=== PATIENT | male | born 2000 | race Caucasian/White ===

== ENCOUNTER 2019-05-26 02:41 | Emergency (ER) | payer BC ==
--- NOTE | 2019-05-26 02:49 | ER Document Report ---
ED General Pain - General Mode of Arrival: Medic Information source: Patient, Emergency Med Personnel <ELENA ANDERSEN - Last Filed: 05/26/19 11:07> <ROSE MARY MENDENHALL - Last Filed: 05/26/19 11:39> <STEPHENZANE P - Last Filed: 05/26/19 11:47> - General Chief Complaint: Accidental Overdose Stated Complaint: ACCIDENTAL OVERDOSE Time Seen by Provider: 05/26/19 02:43 Notes: Patient is an otherwise healthy 18-year-old male presenting to the emergency department after overdosing on Benadryl. Patient reports he took a total of 20 tablets of 25 mg Benadryl. He states this occurred about an hour prior to arrival. Patient states he was trying to go to sleep and initially took 2 tablets of Benadryl but when this did not help him he took the rest of what he had on hand. He denies any suicidal or homicidal ideations. Denies intent of self-harm. Patient reports he used to take Benadryl which helped him go to sleep, when it did not work this time he thought maybe the Benadryl that he bought was "weak" so he decided to try to take more. He denies any recent depression. He is otherwise healthy he does not take any medications. (ELENA ANDERSEN) - Related Data Allergies/Adverse Reactions: No Known Allergies Allergy (Unverified 05/26/19 02:49) Past Medical History - General Information source: Patient - Social History Smoking Status: Never Smoker Frequency of alcohol use: None Drug Abuse: None Family History: Reviewed & Not Pertinent - Medical History Medical History: Negative Surgical Hx: Negative - Immunizations Immunizations up to date: Yes <ELENA ANDERSEN - Last Filed: 05/26/19 11:07> Review of Systems - Review of Systems Constitutional: No symptoms reported EENT: No symptoms reported Cardiovascular: No symptoms reported Respiratory: No symptoms reported Gastrointestinal: No symptoms reported Genitourinary: No symptoms reported Male Genitourinary: No symptoms reported Musculoskeletal: No symptoms reported Skin: No symptoms reported Hematologic/Lymphatic: No symptoms reported Neurological/Psychological: See HPI <ELENA ANDERSEN - Last Filed: 05/26/19 11:07> Physical Exam <ELENA ANDERSEN - Last Filed: 05/26/19 11:07> - Vital signs Vitals: Pulse Ox 100 05/26/19 02:44 - Notes Notes: PHYSICAL EXAMINATION: GENERAL: Well-appearing, well-nourished and in no acute distress. HEAD: Atraumatic, normocephalic. EYES: Pupils equal round and reactive to light, extraocular movements intact, sclera anicteric, conjunctiva are normal. ENT: Nares patent, oropharynx clear without exudates. Moist mucous membranes. NECK: Normal range of motion, supple without lymphadenopathy LUNGS: Breath sounds clear to auscultation bilaterally and equal. No wheezes rales or rhonchi. HEART: Regular rate and rhythm without murmurs ABDOMEN: Soft, nontender, nondistended abdomen. No guarding, no rebound. No masses appreciated. Musculoskeletal: Normal range of motion, no pitting or edema. No cyanosis. NEUROLOGICAL: Cranial nerves grossly intact. Normal speech, normal gait. Flor l sensory, motor exams PSYCH: Normal mood, normal affect. SKIN: Warm, Dry, normal turgor, no rashes or lesions noted. (ELENA ANDERSEN) Course - Laboratory Result Diagrams: 05/26/19 02:47 05/26/19 02:47 <ELENA ANDERSEN - Last Filed: 05/26/19 11:07> - Laboratory Result Diagrams: 05/26/19 02:47 05/26/19 02:47 <ZANE MITCHELL - Last Filed: 05/26/19 11:47> - Re-evaluation Re-evalutation: 05/26/19 03:00 Contacted poison control. Poison control recommends monitoring for tachycardia and seizure activity. Give benzodiazepines if necessary. Patient is alert, oriented, vital signs stable. Monitoring. Is minimum of 6 hours from time of ingestion which would put us at approximately 7:30 AM. 05/26/19 07:03 Patient is alert, oriented, completely asymptomatic. Heart rate 63, respiratory rate 13, SPO2 97% on room air. Blood pressure is 100/63. He is medically renuka ared at this time, currently on IVC papers pending psychiatric evaluation. (ELENA ANDERSEN) 05/26/19 11:46 Family member confirms this was an accidental overdose. Will discharge pt to family care. Seen by Behavioral Health who are in agreement with the plan. ( ZANE MITCHELL) - Vital Signs Vital signs: Temp Pulse Resp BP Pulse Ox 13 118/76 98 05/26/19 11:01 05/26/19 11:01 05/26/19 11:01 - Laboratory Laboratory results interpreted by me: 05/26/19 05/26/19 05/26/19 02:47 02:47 06:19 Lymph % (Auto) 47.5 H Seg Neutrophils % 41.8 L Potassium 3.3 L Salicylates < 1.0 L < 1.0 L Acetaminophen < 10 L < 10 L Discharge <NATHALYELENA C - Last Filed: 05/26/19 11:07> <ROSE MARY MENDENHALL - Last Filed: 05/26/19 11:39> <ZANE MITCHELL - Last Filed: 05/26/19 11:47> - Discharge Clinical Impression: Overdose Qualifiers: Encounter type: initial encounter Injury intent: undetermined intent Qualified Code(s): T50.904A - Poisoning by unspecified drugs, medicaments and biological substances, undetermined, initial encounter Condition: Stable Disposition: HOME, SELF-CARE Additional Instructions: You have been evaluated by both medical and behavioral health teams for accidental overdose and have been deemed appropriate for discharge. While in the emergency department you received the following services: Medical screening and assessment, nursing services, dietary services, pharmacological services, one-on-one counseling and/or psychotherapy, and environmental services. You are encouraged to follow up with your primary care provider with concerns for insomnia. Per the discussion with behavioral health, you have been provided with an outpatient mental health resource list in the event you want to follow up with a mental health provider for CB-I therapy to address insomnia. AT ANY TIME, IF YOUR SYMPTOMS CHANGE SIGNIFICANTLY OR WORSEN OR YOU DEVELOP NEW SYMPTOMS, RETURN TO THE EMERGENCY DEPARTMENT IMMEDIATELY FOR RE-EVALUATION.
[2019-05-26 03:12] LABS: ABSOLUTE EOSINOPHILS # (AUTO) 0.1 10^3/uL (0.0-0.6); ABSOLUTE LYMPHOCYTES (AUTO) 3.3 10^3/uL (0.5-4.7); ABSOLUTE MONOCYTES (AUTO) 0.6 10^3/uL (0.1-1.4); ABSOLUTE NEUT (AUTO) 2.9 10^3/uL (1.7-8.2); BASOPHILS % (AUTO) 0.4 % (0-2); EOSINOPHILS % (AUTO) 1.3 % (0-6); HEMATOCRIT 46.4 % (37.9-51.0); HEMOGLOBIN 16.2 g/dL (13.5-17.0); LYMPHOCYTES % (AUTO) 47.5 % (13-45); MEAN CORPUSCULAR HEMOGLOBIN 30.1 pg (27.0-33.4); MEAN CORPUSCULAR VOLUME 86 fl (80-97); PLATELET COUNT 267 10^3/uL (150-450); RED CELL DISTRIBUTION WIDTH 13.5 % (11.5-14.0); SEGMENTED NEUTROPHILS % (AUTO) 41.8 % (42-78); TOTAL CELLS COUNTED % (AUTO) 100 %; WHITE BLOOD COUNT 6.9 10^3/uL (4.0-10.5)
[2019-05-26 03:20] LABS: ALBUMIN 4.1 g/dL (3.7-5.6); ALKALINE PHOSPHATASE 88 U/L (65-260); ANION GAP 8 (5-19); ASPARTATE AMINO TRANSFERASE 22 U/L (10-45); BILIRUBIN,DIRECT 0.3 mg/dL (0.0-0.4); BILIRUBIN,TOTAL 0.3 mg/dL (0.2-1.3); BLOOD UREA NITROGEN 18 mg/dL (7-20); CALCIUM 8.6 mg/dL (8.4-10.2); CARBON DIOXIDE 26 mmol/L (22-30); CHLORIDE 105 mmol/L (98-107); GLUCOSE 84 mg/dL (75-110); POTASSIUM 3.3 mmol/L (3.6-5.0); TOTAL PROTEIN 7.1 g/dL (6.3-8.2)
[2019-05-26 03:22] LABS: ACETAMINOPHEN < 10 ug/mL (10-30); ALCOHOL < 10 mg/dL (NONE DETECTED); SALICYLATE < 1.0 mg/dL (2.0-20.0)
[2019-05-26 04:52] LABS: APPEARANCE,URINE CLEAR; BILIRUBIN,URINE NEGATIVE (NEGATIVE); COLOR,URINE STRAW; GLUCOSE, URINE NEGATIVE (NEGATIVE); KETONES,URINE NEGATIVE (NEGATIVE); LEUKOCYTE ESTERASE,URINE NEGATIVE (NEGATIVE); NITRITE,URINE NEGATIVE (NEGATIVE); PROTEIN,URINE NEGATIVE (NEGATIVE); UROBILINOGEN,URINE NEGATIVE mg/dL (<2.0)
[2019-05-26 05:08] LABS: URINE AMPHETAMINES SCREEN NEGATIVE; URINE BARBITURATES SCREEN NEGATIVE; URINE BENZODIAZEPINES SCREEN NEGATIVE; URINE COCAINE SCREEN NEGATIVE; URINE MARIJUANA (THC) SCREEN NEGATIVE; URINE METHADONE SCREEN NEGATIVE; URINE PHENCYCLIDINE SCREEN NEGATIVE
[2019-05-26 06:53] LABS: ACETAMINOPHEN < 10 ug/mL (10-30); SALICYLATE < 1.0 mg/dL (2.0-20.0)
--- NOTE | 2019-05-26 07:46 | EKG REPORT ---
SEVERITY:- BORDERLINE ECG - SINUS RHYTHM CONSIDER RIGHT VENTRICULAR HYPERTROPHY : Confirmed by: Reuben Lund MD 26-May-2019 07:46:01
[2019-05-26 11:56] VITALS: BP 120/71
--- NOTE | 2019-05-26 13:38 | PSYCHOLOGICAL NOTE ---
Psych Note - Psych Note Date seen by psych provider: 05/26/19 Time seen by psych provider: 08:00 Psych Note: Patient is a 18-year-old male who presents to ED via EMS for accidental overdose on 20, 25 mg tablets of Benadryl. Patient states he suffers from insomnia. Patient states he read online where others have found benefit of taking 500 mg of Benadryl. Adamantly denies this was a suicide attempt. Patient denies history of suicide attempts. Patient denies history of mental health. Patient denies family history of mental health. Patient states he works at [employer] to support himself. Patient lives with his cousin. Patient states he moved to [place] a few months ago from [place] after a divorce. Patient states that he is going through the process of enlisting into the [employer], however that is on hold due to the bunn pandemic. Patient denies mental health concerns. Clinician spoke with patient's cousin and roommate Maximus ([phone]) confirms patient experiences insomnia. Maximus denies that this was a suicide attempt. Maximus denies patient has a mental health history. Maximus states patient is not a danger to himself or others, has no concerns with discharge. Patient's UDS was negative for substances. Patient is alert and oriented to person, place, time and circumstance. Mood is normal with congruent affect. Patient denies suicidal and homicidal ideations. Delusions are absent and behavior is congruent with an intact reality based presentation (i.e., organized and linear through processes). There is no observed behavior that suggests patient is responding to internal stimuli. Patient is able to engage in organized, rational thought processes. Patient is able to express needs and wants in a logical manner. Patient denies current auditory and visual hallucinations. Eye contact is appropriate. Conversational speech is within normal rate, tone, and prosody. Intellectual ability appears to be within average range. Attention and concentration are good. Insight, judgment and impulse control are currently poor. Impression/Plan: Patient is recommended for rescind of 24 hour petition and is cleared from acute psychiatric services. Patient was placed on a 24-hour petition for evaluation by overnight attending physician. Patient denies the accidental overdose with Benadryl was an attempt in suicide. Patient ports a history of insomnia, read online where 500 mg can be helpful to induce sleep. Patient's narrative was collaborated by his cousin. Patient was provided with psychoeducation regarding sleep hygiene and CBT-I. Patient was encouraged to reach out to a mental health provider engage in CBT-I. Patient was provided an outpatient mental health resource list. Dr. Fragoso was consulted on the care and management of this patient; attending physician is in agreement with recommendations and disposition.
== END 2019-05-26 11:57 | disposition home or self-care (01) ==
LOC: EDBD → ER 02:41
DX: T45.0X4A Poisoning by antiallergic and antiemetic drugs, undetermined, initial encounter (principal)
CPT/HCPCS: 36415; 80053; 80307; 81001; 85025; 93005; 93010; 99285